=== PATIENT | female | born 1995 | race Caucasian/White ===

== ENCOUNTER 2016-10-03 10:00 | Inpatient (IN) | payer OTHER ==
[~2016-10-03] VITALS: Ht 154.9 cm; Wt 86.5 kg
--- NOTE | ~2016-10-03 | DS ---
PATIENT'S NAME: MIRTA [facility] AGE: 21 Y [address] ROOM: [address] [place], [place] [address] LOCATION: [facility] ADMIT DATE: 10/05/2016 Discharge Summary DISCHARGE DATE: 10/07/2016 FAMILY PHYSICIAN: Montez Ayers MD ATTENDING PHYSICIAN: Nirmal Sears REASON FOR ADMISSION: The patient has a scheduled admission for an elective procedure. She came in to have spinal fusion for lumbar spondylolisthesis. She has presented with chronic low back pain which was getting worse and radiating to her legs. Imaging studies showed spondylolisthesis which had progressed in the 2 years while it was being treated nonoperatively. TREATMENT RENDERED: The patient was taken to the operating room on the same day of admission and underwent spinal fusion and decompression of L4-L5 level. The surgery was uncomplicated. The recovery was uneventful. The patient has had some tingling and numbness down the right arm likely related to surgery positioning, but this resolved within the first 24 hours. She also had some residual numbness and tingling in her legs especially the left one, but this was much improved by the time of dismissal. At the time, she was able to ambulate independently. Her pain was well controlled. Her incision was healing well and her dressing was changed. The patient was dismissed with Percocet and Valium to help with postoperative pain control. Arrangements were made for her to be followed up in the Neurosurgery Clinic. FINAL DIAGNOSES: 1. Lumbar spinal stenosis. 2. Lumbar spondylolisthesis. 3. Chronic low back pain. 4. Status post spinal fusion. NIRMAL SEARS MD CNO/modl /[id number] CC: Montez Ayers MD d: 10/09/16 0257 t: 10/10/16 1555, DISCHARGE SUMMARY
--- NOTE | ~2016-10-03 | OR ---
PATIENT'S NAME: AVIS ORTIZ MIRTA J [facility] AGE: 21 Y [address] ROOM: [address] [address] LOCATION: [facility] ADMIT DATE: 10/05/2016 OR/Procedure Report DISCHARGE DATE: FAMILY PHYSICIAN: Montez Ayers MD ATTENDING PHYSICIAN: Shahnaz Hennessy SURGEON: Shahnaz Hennessy MD FISH PITCHER: Giuliana Strickland. DATE OF PROCEDURE: 10/05/2016 PREOPERATIVE DIAGNOSIS: L4-L5 spondylolisthesis. POSTOPERATIVE DIAGNOSIS: L4-L5 spondylolisthesis. PROCEDURES PERFORMED: 1. Bilateral laminectomy (Headley procedure) at L5 and inferior part of L4 with decompression of neural elements and foraminotomy. 2. Bilateral diskectomy at L4-L5. 3. Posterior interbody fusion with structural allograft (tangent bone by [employer]). 4. Posterolateral fusion with morselized autograft and morselized allograft bone at L4-L5. 5. Posterior instrumentation with Solera pedicle screws by [employer] at L4- L5. 6. Use of intraoperative frameless stereotactic equipment (Book of Odds for navigation). 7. Use of O-arm for intraoperative visualization. ANESTHESIA: General. ANESTHESIA PROVIDER: Jony Loredo MD. HISTORY: This patient is a 21-year-old female with complaints of back and leg pain and tingling and numbness in the legs. The patient has had symptoms for 2 years. Imaging studies showed spondylolisthesis at L4-L5. In the last 2 years, the spondylolisthesis has progressed. The patient's symptoms have worsened. She did respond to nonsurgical treatment at first including bracing and epidural steroid injections, but lately the pain has become intolerable and making it difficult for her to work. Surgery was therefore recommended. The above procedure, the benefits and the risks were discussed with the patient and with her consent. She was brought to the operating room for surgery. PROCEDURE IN DETAIL: In the operating room, the patient was placed in a supine position. Anesthesia was induced, Burkett catheter was placed and appropriate support lines were inserted. The patient was then rolled to a PATIENT'S NAME: AVIS ORTIZ MIRTA J [facility] AGE: 21 Y [address] ROOM: [id number] [place], [place] [address] LOCATION: [facility] ADMIT DATE: 10/05/2016 OR/Procedure Report DISCHARGE DATE: FAMILY PHYSICIAN: Montez Ayers MD ATTENDING PHYSICIAN: Shahnaz Hennessy prone position on a Jordy table taking care to protect all pressure points. The incision was marked out in the midline of her lower back. The whole area was prepped and draped in a sterile fashion. Local anesthesia was infiltrated along the incision line. The incision was opened with a #10 blade. Hemostasis was achieved. Self- retaining retractors were inserted. The Bovie was used to deepen the incision. The fascia was opened and the spinous processes were identified. The paraspinous muscles were dissected off the spinous processes and laminae of L3, L4 and L5. The retractors were adjusted. Dissection was continued until the transverse processes at L4-L5 were visualized on both sides. The retractors were adjusted appropriately. We could see that the laminae and spinous process of L5 was very lose. The reference frame was attached to the spinous process of L4. The O-arm was brought in and images were acquired. Registration was performed with [employer] frameless stereotactic system. The O-arm imaging was fused with the Stealth system and a 3-dimensional picture of the spine was seen on the screen. Using the 3-dimensional picture, pedicle screws were placed into L4 and L5. The technique for pedicle screw placement was the same for all the screws and it would be described for 1 screw as representing all the others. First, the anatomic entry point for the screw was identified i.e., the junction of the transverse process and facets. This was verified using the frameless stereotactic system. A ship pilot hole was then drilled and under image guidance, the pedicle hole was drilled into each pedicle. The ball-tipped probe was used to feel around the insides of the hole to confirm that there was no breach. Appropriate sized screws were then inserted into each pedicle hole. We did this sequentially for L4 and L5. Decompression was then carried out of the L5 level. The L5 lamina was very loose and was removed almost en bloc. The dura was visible. There was severe stenosis of the foramina bilaterally for the L4 nerve roots. Working very carefully, the L4 nerve roots were visualized and decompressed. Similarly, the L5 nerve roots were decompressed. Bilateral diskectomy was then carried out of the L4-L5 level. The endplates were prepared for fusion. Appropriate sized piece of allograft bone was selected and placed in the L4-L5 space. There was only room for one bone graft. The patient harvested bone was then ground up and mixed with demineralized bone matrix. This mixture was placed over the transverse processes bilaterally at L4 and L5 for posterolateral fusion. Prior to placing the bone graft, the transverse processes were thoroughly decorticated to promote fusion. PATIENT'S NAME: MIRTA ALAN [facility] AGE: 21 Y [address] ROOM: [address] [address] LOCATION: [facility] ADMIT DATE: 10/05/2016 OR/Procedure Report DISCHARGE DATE: FAMILY PHYSICIAN: Montez Ayers MD ATTENDING PHYSICIAN: Shahnaz Hennessy Appropriate sized rods were then placed inside the screws on both sides. The set screws were used to hold the rods down inside the screw heads. A cross- link was attached. Another O-arm image was acquired before closing to confirm that the pedicle screws were placed accurately and this was the case. The incision was closed in layers using appropriate suture materials. A sterile dressing was applied. The patient was rolled back to a supine position. Her anesthesia was reversed. She was extubated and taken to the recovery room to complete her recovery. I was present at and performed every aspect of this procedure, assisted at some stages by the operating room nurses. There were no apparent intraoperative complications. Swabs, needles, and instruments were all accounted for at the end of the case. Estimated blood loss was 300 mL. There was no reason for blood transfusion. I expect the patient to benefit from this procedure. SHAHNAZ HENNESSY MD CNO/modl /[id number] d: 10/06/16 0814 t: 10/10/16 1552, OPERATIVE SUMMARY
[~2016-10-03 10:00] MED LIST: ADVIL200 MG PO; CYCLOBENZAPRINE5 MG PO; ENSKYCE 28 TAB1 EACH PO; FLEXERIL10 MG PO; NEXPLANON68 MG; NORCO 5-325 MG1 TAB PO; NUCYNTA50 MG PO
--- NOTE | 2016-10-05 16:27 | NUR ---
Significant Event: Patient arrived to floor from OR at 1600. Patient A/O X3. Tingly to R) foot. N/T to right and left fingers. Weakness noted to right leg. Moderate strength to upper extremities. Moves everything spontaneously. VSS. No edema noted. Afebrile. Room air at this time. LS clear throughout. Burkett in place draining yellow urine. BS active X4. Nauseated with small emesis X1 this shift. Dressing to lower back. PIV to bialteral forearms. Infusing with no complications. Morphine FORM COVERER running at 1 mg q8min with 20 mg/4h lockout. Patient to have brace on when up. Clear liquids tolerated well. Diet advanced to regular. Family at bedside. Follow up:
--- NOTE | 2016-10-06 03:57 | NUR ---
Significant Event: A&Ox3. VSS. Pt runs hypotensive SBP in upper 90s. R) foot N&T. R) arm numb and tingling from hand to mid arm. L) hand middle to pinky finger N&T. Dr. Sears is aware. Neuro checks Q2hrs times 24hrs they will be done today at 1400. Stood at bedside last night. Brace to be on when up. RA lungs clear. Burkett to be removed post op day 2 if continues on MEAT PICKLER. On MEAT PICKLER 1mg with 8min lockout. Had 16 demands 15 delivered. Regular diet. Last BM 10/04. Teltank Drsg to back C/D/I. IV to R) forearm running MEAT PICKLER with LR TKO. IV to L) forearm SL. Follow up:
[2016-10-06 05:28] LABS: HEMATOCRIT 31.2 % (33.0-46.0); HEMOGLOBIN 10.4 g/dL (11.0-15.0)
--- NOTE | 2016-10-06 15:56 | NUR ---
Significant Event: A/O X3, 1 Assist/gait belt, ambulate in aguirre with PT, up in chair, back brace on when OOB, voids per toilet, good appetite, IVF/Morphine SHUTTLER CAR R)wrist, L)FA saline lock, drsg to back with small drng noted at top of drsg, aware, valium at 1515. R)foot tingling, R)hand tingling is improving, hand grasps equal. @ bedside. Follow up: monitor pain
--- NOTE | 2016-10-07 04:08 | NUR ---
Significant Event: A&OX3. States she still has some numbness and tingling to R) foot but other tingling and weakness has all gone away. Up 1 assist GB. very helpful. Morphine COUNSELING DIRECTOR D/C'd during the night. On percocet pt rates pain at 0. RA lungs clear. Denies nausea. Regular diet. Has had some blood discharge from vagina pt states that it is not time for her period. Drsg to back shadow drainage. IV to L) forearm and R) forearm SL. Ice to back helps with pain. Brace to back to be on when up. Follow up:
[2016-10-07] MEDS ORDERED: PERCOCET 5-3251 EACH PO (13:21)
[2016-10-07] MEDS ORDERED: VALIUM5 MG PO (13:22)
--- NOTE | 2016-10-07 19:06 | NUR ---
Significant Event: A/O x3, SBA/GAIT BELT, Back brace on when OOB, showered, ambulates in aguirre, up in chair, pain managed with percocet last at 1500, valium at 1500, dulcolax supp given, passes lots of flatus, feels better. CSM intact to all extremities except slight tingling to R)foot. drsg changed by this morning, D/I to incision. saline lock to Bilateral FA. Follow up: discharge home tonight.
== END 2016-10-07 19:35 | disposition disaster alternative care site (69) | DRG 460 ==
LOC: GNTU 10-05 05:37 → G3N 10-05 05:37 → GNTU 10-05 14:38
PROVIDERS: ADMIT Neurological Surgery
PROC: 0SG00A1 (ICD-10-PCS; principal; 2016-10-05)
DX: M43.16 Spondylolisthesis, lumbar region (principal); M48.06 Spinal stenosis, lumbar region
CPT/HCPCS: C1713; J0131; J0690; J1100; J1885; J2001; J2250; J2270; J2405; J3010; J3360; J7030; J7120